=== PATIENT | male | born 1985 | race Caucasian/White ===

== ENCOUNTER 2025-05-23 15:57 | Inpatient (IN) | payer OTHER, SELFPAY ==
[2025-05-21 20:00] VITALS: BP 200/120
[2025-05-21 20:31] VITALS: BMI 34.3
[2025-05-21] MEDS: ZOFRAN 4 MG IV (20:36)
[2025-05-21] MEDS: NSS 1000 IV (20:36)
[2025-05-21] MEDS: PROTONIX IV 40 MG IV (20:36)
[2025-05-21] MEDS: VALIUM INJECTION 10 MG IV ×2 (20:37→23:51)
[2025-05-21 20:38] VITALS: BP 156/102
--- NOTE | 2025-05-21 20:39 | ED.GENMED ---
History of Present Illness
General
Chief Complaint: Abdominal Pain
Source: patient
Exam Limitations: none
Time Seen by Provider: 05/21/25 20:14
Nursing documentation reviewed up to this point in time: agreed with
History of Present Illness
History of Present Illness:
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
vomiting, family members who are in medicine think he may have pancreatitis which he has never had before, points to his right mid back, still has his gallbladder, no bloody stools no bloody emesis
Past History
Past History
ED Past Medical History: Asthma and Cancer (Wilms tumor)
ED Past Surgical History: Urological (Right nephrectomy at age 8)
Social History
Tobacco: Non-smoker
Alcohol: Occasional
Personal: Single
Living: with family
Employment: Employed
Family History
Family History: Other (Noncontributory)
Review of Systems
Review of Systems
All Other Systems: Not applicable
Constitutional: Reports fever
EENT: Reports no symptoms
Respiratory: Denies cough
Cardiac: Denies chest pain
ABD/GI: Reports abdominal pain, nausea and vomiting; Denies diarrhea or black stools
: Reports no symptoms; Denies flank pain
Musculoskeletal: Reports back pain
Phy Exam
Physical Exam
Physical Exam:
Physical Exam
General: 40-year-old male looks uncomfortable smells of alcohol
Neck: No jaundice
Heart: s1/s2 regular rate and rhythm, no murmur. equal radial pulses.
Lungs: no acute respiratory distress. clear bilaterally
Abdomen: Mild right upper quadrant right flank pain
Neuro: alert and oriented. no focal neurological deficits
Skin: no rash
Psychiatric: Slightly tremulous cooperative
Extremities: no edema.
Scores
Withdrawal Assessment of Alcohol
Withdrawal Assessment Completed?: Yes
Nausea and Vomiting: Mild nausea with no vomiting
Tactile Disturbances: Very mild itching, pins and needles, burning or numbness
Tremor: Not visible, but can be felt fingertip to fingertip
Auditory Disturbances: Very mild harshness or ability to fighten
Paroxysmal Sweats: No sweat visible
Visual Disturbances: Mild sensitivity
Anxiety: Moderately anxious, or guarded, so anxiety is inferred
Headache, Fullness in Head: Mild
Agitation: Moderately fidgety and restless
Orientation and clouding of sensorium: Oriented and can do serial additions
Total CIWA Score: 16
Alcohol Withdrawal Medication Recommendation: Equal to MSAS Score 8-11. Lorazepam 1-2mg IV NOW & re-assess q1hr
Course
Orders/Labs/Results
Orders:
Orders
05/21/25 20:00
Electrocardiogram (*1) Urgent
Reason for Study: Tachycardia
05/21/25 20:01
EKG- Treatment ONCE
05/21/25 20:25
Cardiac Monitoring- Treatment ONCE
0.9% Sodium Chloride 1000 ml [Nss] 1,000 ml IV BOLUS
05/21/25 20:26
Ondansetron Injectable [Zofran] 4 mg IV NOW STA
Pantoprazole [Protonix IV] 40 mg IV NOW STA
diazePAM [Valium Injection] 10 mg IV NOW STA
05/21/25 20:32
Add On- LAB Urgent
Tests Added?: magnesium
05/21/25 20:38
Alcohol Urgent
Complete Blood Count/With Diff Urgent
Comprehensive Metabolic Panel Urgent
Lipase Urgent
Magnesium Urgent
Comment: ADD ON
Manual Differential Urgent
05/21/25 21:00
0.9% Sodium Chloride 1000 ml [Nss] 1,000 ml Mvi, Adult [Multivitamin] 10 ml Thiamine Injection 100 mg Magnesium Sulfate 2 grams IV 250 mls/hr
05/21/25 21:10
CT Abd/pelvis W Iv Cont Urgent
Comment:
Reason For Exam: pain vomiting drinker
05/21/25 21:43
Urinalysis Reflex To Culture Urgent
Date Specimen was Collected: 05/21/25
Time Specimen was Collected: 21:41
Urine Microscopic Reflex Cult Urgent
05/21/25 23:06
diazePAM [Valium Injection] 10 mg IV NOW STA
Abnormal Lab Results
05/21/25 05/21/25
20:38 21:43
RBC 4.59 L 10^6/uL
(4.70-6.10)
MCH 33.1 H pg
(27.0-31.0)
Abs Neuts (Manual) 6.9 H 10^3/uL
(1.4-6.5)
Lymphocytes (Manual) 12 L %
(20-51)
Monocytes (Manual) 12 H %
(2-9)
Sodium 132 L mmol/L
(135-145)
Chloride 94 L mmol/L
(98-107)
Carbon Dioxide 21 L mmol/L
(22-30)
BUN 4 L mg/dl
(9-20)
Glucose 112 H mg/dl
(70-99)
Magnesium 1.1 L mg/dl
(1.6-2.3)
AST 180 H U/L
(17-59)
ALT 100 H U/L
(0-50)
Urine Bacteria (Reflex) Few A
(Negative)
Urine Albumin (Reflex) 3+ A
(Neg - Trace)
05/21/25 20:38
05/21/25 20:38
Vital Signs
Initial and Last Documented VS:
Initial Vital Signs
Temp Pulse Resp Pulse Ox
98.2 F 115 19 96
05/21/25 19:57 05/21/25 19:57 05/21/25 19:57 05/21/25 19:57
Last Documented Vital Signs
Temp Pulse Resp BP Pulse Ox
98.2 F 117 17 156/102 98
05/21/25 19:57 05/21/25 20:38 05/21/25 20:38 05/21/25 20:38 05/21/25 20:52
MDM/Problems Addressed
Differential Diagnosis Includes:
Pancreatitis biliary colic gastritis UTI stone musculoskeletal doubt AAA or dissection
MDM/Problems Addressed:
Flank pain back pain alcohol
Chronic conditions affecting care:
Alcohol
Acute Exacerbation and/or Progression of Chronic Illness:
Alcohol
*Pulse Oximetry
SaO2: 96
Oxygen Mode of Delivery: Room air
Patient hypoxic: no
*EKG
Interpreted by ED Provider?: Yes
Interpretation: normal
Comparison EKG: no comparison EKG present
Heart Rate: 78
Rate: normal
Rhythm: sinus
Ischemia: no ischemia
*Mail Agent Interpretation
Rate: normal
Interpretation: normal
Heart Rate: 78
Rhythm: sinus
*Critical Care Note
Total Time (30-74mins, 75-104mins- exclusive of procedures): 20
Update Note
Update Note:
11 PM update labs are noted no radiographic, nor lab evidence of pancreatitis pain is on the right upper back
Will continue hydration
11:30 AM becoming more agitated, patient offered rehab, [facility] etc. he is not interested in, citing some pain in his back hesitant to prescribe any narcotics, as he is alcoholic, considering admission here for impending DTs
ED Attending Note
-
Portions of this chart may have been created with voice recognition software.� Occasional wrong word or��sound alike� substitutions may have occurred due to the inherent limitations of voice recognition software.
Discharge Plan
Departure
Patient Disposition: Home (Routine Discharge)
Date of Disposition: 05/21/25
Time of Disposition: 23:37
Patient with high blood pressure during this ER visit?: No
Condition: Good
Discharge Problem:
Impending DTs, Solitary kidney, acquired, Hypomagnesemia
Prescriptions:
No Action
aspirin 325 MG tablet
325 mg PO DAILY 0RF
Rx Instructions:
TAKE WITH FOOD
diltiazem HCl 180 MG capsule,extended release 24hr
180 mg PO DAILY Qty: 30 3RF
docusate sodium 100 MG capsule
100 mg PO BID 0RF
ergocalciferol (vitamin D2) 8,000 UNITS/ML drops
50,000 units PO WEEKLY Qty: 4 3RF
oxycodone 5 MG tablet
5 mg PO Q6HPRN PRN (Reason: moderate-severe pain) Qty: 30 0RF
Rx Instructions:
1 tab moderate pain or 2 if pain severe
Dx total joint replacement
ongoing therapy
prednisone 10 MG tablet
40 mg PO TAPER Qty: 10 0RF
Rx Instructions:
4 tab(40mg) day 1, 3 tabs(30mg) day 2, 2 tabs(20mg) day3,
1 tab (10mg) day 4, then stop
famotidine 20 MG tablet
20 mg PO HS Qty: 30 0RF
albuterol sulfate 2.5 mg /3 mL (0.083 %) solution for nebulization
2.5 mg inhalation Q6H PRN (Reason: shortness of breath or wheezing) Qty: 90 0RF
prednisone 20 mg tablet
40 mg PO DAILY Qty: 8 0RF
Referrals:
Ludin Lomeli DO [Family Provider, Family Practice]
Interventions
Interventions:
*General Assessment Last Done: 05/21/25 19:59
*Neglect/Abuse Screening Last Done: 05/21/25 20:00
*ED COVID-19 Vaccine History Last Done: 05/21/25 20:00
*ED Influenza Vaccine History Last Done: 05/21/25 20:00
[facility] Fall Risk Assessment Tool Last Done: 05/21/25 20:31
*Risk Screen - Suicide (C-SSRS) Last Done: 05/21/25 20:00
GU-Achbfp-Fybgricxqb Assessment Last Done: 05/21/25 20:31
Discharge Date and Time
Print Language: SAMOAN
[2025-05-21 20:55] LABS: Hematocrit 42.6 % (39.0-52.0); Hemoglobin 15.2 g/dL (13.0-18.0); Mean Corp Hgb Conc. 35.7 g/dL (33.0-37.0); Mean Corpuscular Volume 92.8 fL (80.0-94.0); Red Cell Dist. Width 13.2 % (11.5-14.5)
[2025-05-21 21:00] VITALS: BP 134/82
[2025-05-21 21:07] LABS: Platelet Count 168 10^3/uL (130-400)
[2025-05-21 21:08] LABS: ALT (SGPT) 100 U/L (0-50); AST (SGOT) 180 U/L (17-59); Albumin 4.6 g/dl (3.5-5.0); Alkaline Phosphatase 118 U/L (38-126); Blood Urea Nitrogen 4 mg/dl (9-20); Calcium 8.4 mg/dl (8.4-10.2); Carbon Dioxide 21 mmol/L (22-30); Chloride 94 mmol/L (98-107); Estimated Creatinine Clearance > 125 ml/min; Glucose 112 mg/dl (70-99); Lipase 109 U/L (23-300); Magnesium 1.1 mg/dl (1.6-2.3); Potassium 3.7 mmol/L (3.5-5.1); Sodium 132 mmol/L (135-145); Total Protein 7.7 g/dl (6.3-8.2); eGFR > 60.00
[2025-05-21 21:09] LABS: Absolute Neutrophils -Man Diff 6.9 10^3/uL (1.4-6.5)
[2025-05-21 21:10] LABS: Normal RBC Morphology Yes; Platelets Checked Yes; Total Cells Counted 100
[2025-05-21] MEDS: MULTIVITAMIN 1015 GRAMS IV (21:40)
[2025-05-21] MEDS: MULTIVITAMIN 1015 MG IV (21:40)
[2025-05-21] MEDS: MULTIVITAMIN 1015 ML IV (21:40)
[2025-05-21 22:03] LABS: Urine Character Clear (Clear)
[2025-05-21 22:13] LABS: Urine Red Blood Cell 0-2 /HPF (0-2); Urine Squamous Cell 0-2 /LPF (Few); Urine White Cell 0-2 /HPF (0-5)
[2025-05-21 23:54] VITALS: BP 128/87
[2025-05-22] VITALS: BP 142/107
--- NOTE | 2025-05-22 00:18 | HPS.HSE ---
Family Physician
-
Family Physician: Ludin Lomeli
Chief Complaint
-
Abdominal pain
History of Present Illness
This is a 40-year-old with past medical history significant for alcohol dependence who presents to the emergency department with 1 day history of abdominal pain nausea vomiting which she attributes to pancreatitis.
Patient feels that is having symptoms secondary to acute pancreatitis. He reports vomiting and nausea throughout the day. Reports chronic history of heavy drinking. He states he drinks 1 L of liquor (vodka) daily. His last drink was at around 6
PM yesterday. Patient reports the pain is in the right upper quadrant and radiating towards the back. He denies any bloody or bilious emesis.
Patient denies known history of pancreatitis or gallstone disease. He does have a history of Wilms tumor at age 8 status post right nephrectomy. He states that he has undergone withdrawal episodes in the past that required hospitalization and ICU
stay. He also reports that he has had delirium tremens. He denies history of withdrawal seizures. He currently denies any interest in rehab. While he was being evaluated in the ED he started having withdrawal symptoms which he describes as
tremulousness and tachycardia. Is not currently having any hallucinations.
In the emergency department he was afebrile, blood pressure was 150/100 with a pulse rate of 117 and oxygen saturation of 98%. EKG shows sinus tachycardia at rate of [address] or T wave changes.
CBC was unremarkable. Electrolytes BUN/creatinine were in the normal range. He had a low magnesium of 1.1, AST 180 ALT 100. Lipase was normal. UA was unremarkable. Alcohol level was 280.
CT of the abdomen pelvis shows severe hepatic steatosis but no biliary findings. Gallbladder is normal.
Medical History
Past Medical History
Past Medical History: Reports Psychiatric (ADD, depression, anxiety,) and Other (Lymphedema)
Past Surgical History: Reports Orthopedic (Left hip cannulation/screw fixation) and Other (A right nephrectomy, and lymph node dissection,)
Social History
Tobacco: Non-smoker
Alcohol: Daily
Drug: None
Family History
Family History: Not pertinent
Allergies / Home Medications
Allergies reflects when Allergies were last updated in [employer]
Home Medications with original date entered in [employer]
Allergy/Medication List:
Allergies
Allergy/AdvReac Type Severity Reaction Status Date / Time
diphenhydramine HCl (From Allergy 'made me Verified 06/05/23 09:00
Benadryl) tish'
Home Medications
Propranolol 20 mg tablets, 20 mg p.o. 3 times daily as needed
Doxepin 50 mg, 50 mg p.o. at bedtime
Review of Systems
-
Constitutional: Reports No Symptoms
EENT: Reports No Symptoms
Respiratory: Reports No Symptoms
Cardiac: Reports No Symptoms
Abdomen/GI: Reports Abdominal Pain, Nausea and Vomiting
: Reports No Symptoms
Musculoskeletal: Reports No Symptoms
Skin: Reports No Symptoms
Neurological: Reports No Symptoms
Endocrine: Reports No Symptoms
Hematologic/Lymphatic: Reports No Symptoms
Psych: Reports No Symptoms
Physical Exam
Vital Signs
Vital Signs
Temp Pulse Resp BP Pulse Ox
98.2 F 117 17 156/102 98
05/21/25 19:57 05/21/25 20:38 05/21/25 20:38 05/21/25 20:38 05/21/25 20:52
Physical Exam
General: Well Developed, Well Nourished and No Apparent Distress
HEENT: NormoCephalic, Moist mucous membranes and Atraumatic
Respiratory: Clear
Cardiac: S1/S2 and Regular Rhythm; No Murmur or Rub
GI: Soft, Non Tender, Non Distended and Normal Bowel Sounds; No Organomegaly
Rectal: Deferred by Provider
Musculoskeletal: No Clubbing, No Cyanosis and No Edema
Skin: No Rash
Neuro: Nonfocal/grossly intact
Laboratory Results
-
05/21/25 20:38
05/21/25 20:38
Laboratory Results
Total Bilirubin 1.3 mg/dl (0.2-1.3) 05/21/25 20:38
AST 180 U/L (17-59) H 05/21/25 20:38
ALT 100 U/L (0-50) H 05/21/25 20:38
Alkaline Phosphatase 118 U/L (38-126) 05/21/25 20:38
Lipase 109 U/L (23-300) 05/21/25 20:38
Data Reviewed
-
CT Scan: Report Reviewed by me
Medical Tests (Nuc Med, Echo, EKG etc): Image Personally Visualized and interpreted
Lab Data: Labs Reviewed by me
Old Records: Reviewed
Impression/Plan
-
IMPRESSION:
40-year-old male with past medical history significant for alcohol abuse who presents to the emergency department with abdominal pain initially thought to be pancreatitis. However his labs are negative for pancreatitis and a CT scan shows no
evidence of pancreatitis. Pain is likely gastritis. I am in the emergency department and seems to have symptoms of withdrawal with tachycardia and tremulousness and anxiety. He feels he is going to withdrawal. He has a history of prior alcohol
withdrawal requiring hospitalizations and ICU stay in the past. His last hospitalization for withdrawal was in April.
PLAN:
Alcohol withdrawal -history of severe withdrawal, he has a elevated PAWS = 6. Currently has mild tremulousness and tachycardia.
� Admit to telemetry observation
� Will start high risk withdrawal protocol with phenobarbital taper
� Msas and as needed atenolol
� IV folic acid and thiamine and
-Continue IV fluids
� Case management for outpatient rehab
Abdominal pain -suspect gastritis. Cannot rule out acute alcohol hepatitis.
-Pain control, antiemetics
� N.p.o. for now except clear liquids
� Trend LFTs
� Check INR
� Encourage alcohol withdrawal
DVT prophylaxis�Lovenox subcu
CODE STATUS�full code
[2025-05-22] MEDS: MORPHINE SULFATE 4 MG IV (01:13)
[2025-05-22] MEDS: ZOFRAN 4 MG IV (01:44)
[2025-05-22] MEDS: PHENOBARBITAL 104 MG IV (02:30)
--- NOTE | 2025-05-22 03:08 | PTCARENOTE ---
Pt received from ED to rm [id number]. Pt oriented to room and call doherty.
[2025-05-22 03:15] VITALS: BP 159/96; BMI 33.7
[2025-05-22] MEDS: NSS 1000 IV ×2 (03:42→13:27)
[2025-05-22] MEDS: ATIVAN 1 MG PO ×3 (03:47→22:07)
[2025-05-22] MEDS: DILAUDID 0.5 MG IV ×3 (04:50→13:31)
--- NOTE | 2025-05-22 07:32 | W.PN.HOSP.TC ---
Addendum entered and electronically signed by Delfino Yousif MD 05/22/25 20:57:
Attending Addendum-I saw and evaluated the patient. I reviewed the resident�s note and agree with findings and plan as documented in the resident�s note. Sub: Complains of feeling unwell. Tremulous, nauseous, right flank pain/right sided abd pain.
Full 12 point ROS reviewed and negative except as documented Exam: Vitals reviewed in chart GEN-mild distress heart tachycardic no murmur lungs decreased BS @ bases Abd distended TTP RUQ and Right flank, pos BS no rebound no guarding no fluid wave
LE trace b/l LE edema Neuo tremulous, no asterixis AAOx3
Plan:
#Alcohol withdrawal -history of DT's
� continue high risk withdrawal protocol with phenobarbital taper
� MSAS 4-6l
� IV folic acid and thiamine
- Continue IV fluids
� Case management for outpatient rehab
# Abdominal pain/ETOH hepatitis
-pain likely from etoh hepatitis and severe hepatic steatosis
-Pain control, antiemetics
-abd u/s 05/22-
1. VERY SEVERE DIFFUSE HEPATIC STEATOSIS.
2. Distended gallbladder.
3. No sonographic evidence for biliary obstruction.
4. Previous right nephrectomy.
5. No sonographic evidence for ascites.
� Trend LFTs
- cont iVF/pain control
� Encourage alcohol withdrawal
# Hyponatremia-cont IVF repeat BMP in am
# Hypokalemia-replete and recheck BMP in am
# Thrombocytopenia-from ETOH abuse- cont to trend CBC
# H/O Wilms tumor with right nephrectomy
# HTN- cont propranolol
# Insomnia-cont doxepin
DVT prophylaxis�SCDs
CODE STATUS�full code
Dispo-refusing IP rehab->eventual IOP
Time spent coordinating care, review of plan of care with resident, personally reviewed records in EMR, med rec, consults, notes, labs, radiology, d/w nursing and CM� 51 mins
Original Note:
Today's Communication/Plan
-
CXR
Abd US
MSAS protocl
phenobarb taper
pain management
Assessment / Plan
Assessment / Plan
40yoM PMH R Wilms tumor s/p nephrectomy lung RT with RT fibrosis 1992 and alcohol dependence presenting with alcohol withdrawal and alcohol hepatitis.
AFVSS. Pt is becoming tachycardic with hypertension with agitation scoring MSAS highest 6. Pt complains most of RUQ pain, negative [place] sign. Distended abdomen without fluid wave. Pt also has sore throat and cough, known sick contacts at home
with same symptoms. AST 131 ALT 85 Bilirubin 1.5. Lipase 109. CT abd no signs of pancreatitis, steatosis. Abd US positive for steatosis no findings of ascites. R sided pain localizes to flank w RUQ tenderness most likely referred hepatic pain given
absence of R kidney, eliminating renal etiology for source of pain.
Pt reports he is done drinking. He declined rehab since he has been many times without benefit but reports this time he plans on stopping and changing his lifestyle. Discussed with his sister who reports this has happened about 20 times.
#acute alcohol withdrawal
- MSAS protocol
- phenobarbital taper
- PRN ativan
- upgrade as needed if scoring high MSAS
#elevated LFTS possible alcohol hepatitis
- Abd US and CT demonstrate steatosis
- elevated LFTs
- RUQ pain. PRN oxycodone 5mg. Lidocaine patch
- Hold tylenol
#URI
#Hx lung RT
- cough and sore throat. tx conservatively
- mucinex
- PRN duonebs
#hx Wilms tumor
- Kidney. Hold NSAIDs
PCP Dr Sanchez
Confirmed full code
Anticipated Discharge: 24 - 48 hours
Subjective/Interval History
-
Date of Service: May 22, 2025
Pt reports drinking 1 bottle vodka/day for the last 2 weeks. He explained that he was in a residential relationship that ended 2 years ago that started a cycle of binge drinking. He reports his last 'delgado' was in April where he went to a detox
facility. He reports repeated detox facility and rehab admissions, one of which he was admitted to a hospital in the ICU for DT.
Today, Pt reports feeling unwell with body aches from alcohol withdrawal. He reports a new onset cough and sore throat, describing his mom and sister have had similar cold-like symptoms. Additionally, he reports R sided pain that is exacerbated with
coughing and moving. Denies nausea or vomiting since taking zofran. Last emesis yesterday. Last alcohol drink yesterday. Denies diarrhea, constipation, last BM yesterday normal. Reports feeling bloated which he describes happens when he drinks.
Objective Data
-
Labs:
Laboratory Results
05/21/25 05/22/25
20:38 06:57
WBC 9.6
Hgb 15.2
Hct 42.6
Plt Count 168
PT Pending
INR Pending
APTT Pending
Sodium 132 L
Potassium 3.7
Chloride 94 L
Carbon Dioxide 21 L
BUN 4 L
Creatinine 0.7
Glucose 112 H
Calcium 8.4
Total Bilirubin 1.3
AST 180 H
ALT 100 H
Alkaline Phosphatase 118
Vital Signs:
Vital Signs
Temp Pulse Resp BP Pulse Ox
97.6 F 103 18 159/96 93
05/22/25 03:15 05/22/25 03:15 05/22/25 03:15 05/22/25 03:15 05/22/25 03:15
I&O
05/21/25 05/22/25 05/23/25
06:59 06:59 06:59
Intake Total 1310 / 1310
Balance 1310 / 1310
Review of Systems
-
History Source: Patient
Constitutional: Reports No Appetite and Weakness
EENT: Reports Sore Throat; Denies Runny Nose or Blurry Vision
Respiratory: Reports Cough
Cardiac: Reports No Symptoms
Abdomen/GI: Reports Abdominal Pain; Denies Nausea, Vomiting, Diarrhea or Constipated
Genitourinary: Denies No Symptoms
Musculoskeletal: Reports Myalgias
Skin: Reports No Symptoms
Neuro: Reports Tremors
Endocrine: Reports No Symptoms
Hematologic / Lymphatic: Reports No Symptoms
Physical Exam
-
General: Well Developed, Well Nourished and No Apparent Distress
HEENT: Normocephalic, Atraumatic and Moist Mucous Membranes
Respiratory: Clear to Auscultation and Non Labored Respirations
Cardiac: Regular Rhythm and S1/S2
GI: Tender (deep palpation RUQ) and Distended
Musculoskeletal: No Edema (L lymphedema at baseline)
Skin: Warm, Dry and Other (flushed)
Neuro: AO x 3, No Motor Deficits and Nonfocal/Grossly Intact; Negative Tremors
Psych: Calm
[2025-05-22] MEDS: FOLVITE 1 MG PO (07:50)
[2025-05-22] MEDS: NSS (PRESERVATIVE FREE) 8 ML IV (07:51)
[2025-05-22] MEDS: PROTONIX IV 40 MG IV (07:51)
[2025-05-22] MEDS: NSS (PRESERVATIVE FREE) 10 ML IV (07:51)
[2025-05-22] MEDS: PHENOBARBITAL 97.5 MG IV ×3 (07:52→22:01)
[2025-05-22] MEDS: PEPCID 20 MG IV (07:52)
[2025-05-22] MEDS: THIAMINE INJECTION 200 MG IV ×3 (07:53→23:22)
[2025-05-22 08:27] LABS: APTT 30.8 Sec (23.4-35.0); INR 1.06; PT 13.9 Sec (11.4-14.6)
[2025-05-22 08:43] VITALS: BP 165/124
[2025-05-22 08:55] LABS: Magnesium 1.7 mg/dl (1.6-2.3)
[2025-05-22 10:18] LABS: Urine Character Clear (Clear)
[2025-05-22] MEDS: MUCINEX 600 MG PO ×2 (10:53→20:05)
[2025-05-22 11:17] LABS: Urine Red Blood Cell 0-2 /HPF (0-2); Urine Squamous Cell 0-2 /LPF (Few)
[2025-05-22 11:54] LABS: Hematocrit 40.2 % (39.0-52.0); Hemoglobin 13.5 g/dL (13.0-18.0); Mean Corp Hgb Conc. 33.6 g/dL (33.0-37.0); Mean Corpuscular Volume 95.3 fL (80.0-94.0); Nucleated Red Blood Cells % 0 % (-); Platelet Count 121 10^3/uL (130-400); Red Cell Dist. Width 13.5 % (11.5-14.5)
[2025-05-22 13:09] LABS: ALT (SGPT) 85 U/L (0-50); AST (SGOT) 131 U/L (17-59); Albumin 4.2 g/dl (3.5-5.0); Alkaline Phosphatase 102 U/L (38-126); Blood Urea Nitrogen 4 mg/dl (9-20); Calcium 8.0 mg/dl (8.4-10.2); Carbon Dioxide 22 mmol/L (22-30); Chloride 99 mmol/L (98-107); Estimated Creatinine Clearance > 125 ml/min; Glucose 93 mg/dl (70-99); Potassium 3.4 mmol/L (3.5-5.1); Sodium 131 mmol/L (135-145); Total Protein 7.1 g/dl (6.3-8.2); eGFR > 60.00
[2025-05-22] MEDS: LIDOCAINE 4% PATCH 1 PATCH TOPICAL (13:30)
--- NOTE | 2025-05-22 15:31 | CM ---
CM reviewed chart, patient seen bedside, initial assessment completed.
Pt reports he has his own home in [place], does also stay with his parents in [place].
Patient is independent with ADLs/IADLs.
PCP: Ludin Lomeli, Pharmacy [facility] if d.c to parents home, [facility] if d/c to own home.
CM offered [facility] to patient, undecided at this time. Will continue to offer.
CM will continue to follow for all d/c planning needs.
Plan; continue to offer [facility]
[2025-05-22 15:37] LABS: COVID-19 Antigen Negative (Negative)
[2025-05-22 15:55] VITALS: BP 177/108
[2025-05-22] MEDS: ATIVAN 1 MG IV (18:37)
[2025-05-22 19:44] VITALS: BP 169/116
[2025-05-22] MEDS: REMOVE LIDOCAINE PATCH 1 PATCH REMOVE (20:07)
[2025-05-22] MEDS: SINEQUAN 50 MG PO (22:01)
[2025-05-22 23:44] VITALS: BP 174/96
[2025-05-23] VITALS (11 sets, daily range): BP systolic 116–159; BP diastolic 64–144
[2025-05-23] MEDS: ATIVAN 1 MG PO ×3 (00:29→17:20)
[2025-05-23] MEDS: NSS IV ×2 (01:45→01:51)
[2025-05-23] MEDS: NSS 1000 IV ×3 (01:51→17:22)
[2025-05-23] MEDS: ROXICODONE 5 MG PO (03:56)
[2025-05-23] MEDS: SENOKOT-S 1 TABLET PO (03:56)
--- NOTE | 2025-05-23 06:00 | PTCARENOTE ---
Contacted House Provider for pt's BP 174/96 at 23:44. House Provider aware. No orders received for BP lowering medication. When asked if IVF at 125mL/hr could be reduced, orders received for fluids to infuse at 75mL/hr. Repeat BP at 03:15 129/64.
Will continue to monitor.
[2025-05-23] MEDS: DILAUDID 0.5 MG IV ×2 (08:49→20:50)
[2025-05-23] MEDS: PHENOBARBITAL 97.5 MG IV ×3 (08:59→22:41)
[2025-05-23] MEDS: MUCINEX 600 MG PO (08:59)
[2025-05-23] MEDS: NSS (PRESERVATIVE FREE) 10 ML IV (09:00)
[2025-05-23] MEDS: FOLVITE 1 MG PO (09:00)
[2025-05-23] MEDS: LIDOCAINE 4% PATCH 1 PATCH TOPICAL (09:00)
[2025-05-23] MEDS: PROTONIX IV 40 MG IV (09:01)
[2025-05-23] MEDS: THIAMINE INJECTION 200 MG IV ×2 (09:01→15:59)
[2025-05-23 10:57] LABS: Hematocrit 39.0 % (39.0-52.0); Hemoglobin 13.7 g/dL (13.0-18.0); Mean Corp Hgb Conc. 35.1 g/dL (33.0-37.0); Mean Corpuscular Volume 94.4 fL (80.0-94.0); Nucleated Red Blood Cells % 0 % (-); Platelet Count 103 10^3/uL (130-400); Red Cell Dist. Width 12.8 % (11.5-14.5)
[2025-05-23 11:13] LABS: ALT (SGPT) 71 U/L (0-50); AST (SGOT) 117 U/L (17-59); Albumin 3.9 g/dl (3.5-5.0); Alkaline Phosphatase 112 U/L (38-126); Blood Urea Nitrogen 6 mg/dl (9-20); Calcium 7.9 mg/dl (8.4-10.2); Carbon Dioxide 23 mmol/L (22-30); Chloride 96 mmol/L (98-107); Estimated Creatinine Clearance > 125 ml/min; Glucose 160 mg/dl (70-99); Magnesium 1.5 mg/dl (1.6-2.3); Potassium 3.4 mmol/L (3.5-5.1); Sodium 127 mmol/L (135-145); Total Protein 6.8 g/dl (6.3-8.2); eGFR > 60.00
[2025-05-23] MEDS: ATIVAN 1 MG IV ×2 (12:39→14:48)
[2025-05-23] MEDS: NSS (PRESERVATIVE FREE) 0.5 ML IV ×2 (12:40→14:49)
--- NOTE | 2025-05-23 15:23 | W.PN.HOSP.TC ---
Addendum entered and electronically signed by Oscar Araiza MD 05/23/25 15:58:
MSAS continue to increase. Now with hallucinations. DTs. Transfer to ICU and start Precedex. Group Work Program Aide notified
Original Note:
Today's Communication/Plan
-
Monitor vitals
See plan
Monitor MSAS closely
Continue with phenobarbital
If symptoms get worse then will need Precedex
Start fluids
Replete magnesium, phosphorus, potassium
Monitor sodium
Trial of clonidine
Assessment / Plan
Assessment / Plan
40yoM PMH R Wilms tumor s/p nephrectomy lung RT with RT fibrosis 1992 and alcohol dependence presenting with alcohol withdrawal and alcohol hepatitis.
AFVSS. Pt is becoming tachycardic with hypertension with agitation scoring MSAS highest 6. Pt complains most of RUQ pain, negative [place] sign. Distended abdomen without fluid wave. Pt also has sore throat and cough, known sick contacts at home
with same symptoms. AST 131 ALT 85 Bilirubin 1.5. Lipase 109. CT abd no signs of pancreatitis, steatosis. Abd US positive for steatosis no findings of ascites. R sided pain localizes to flank w RUQ tenderness most likely referred hepatic pain given
absence of R kidney, eliminating renal etiology for source of pain.
Pt reports he is done drinking. He declined rehab since he has been many times without benefit but reports this time he plans on stopping and changing his lifestyle. Discussed with his sister who reports this has happened about 20 times.
#acute alcohol withdrawal
- MSAS protocol
- cw phenobarbital taper
- PRN ativan
cw IVF
Currently no signs of delirium. However if MSAS continue to get worse patient is agitated then will need Precedex
#elevated LFTS likely secondary to possible alcohol hepatitis
- Abd US and CT demonstrate steatosis
- elevated LFTs, trend
Pain control
- Hold tylenol
Right hand pain
X-ray without any acute abnormality
Monitor
Hypokalemia
Replete
Hypophosphatemia
Replete
Hyponatremia
Start fluids
Monitor
Hypomagnesemia
Replete
Thrombocytopenia likely secondary to alcohol use
Monitor
Currently hypertensive
Not on any home meds
Monitor with withrawal
#URI
#Hx lung RT
- cough and sore throat. tx conservatively
- mucinex
- PRN duonebs
#hx Wilms tumor with right nephrectomy
DVT prophylaxis
start lovenox
Full code
General: Well Developed, Well Nourished and No Apparent Distress
HEENT: NormoCephalic, Moist mucous membranes and Atraumatic
Respiratory: Clear
Cardiac: S1/S2 and Regular Rhythm; +tachycardia
GI: Soft, Non Tender, Non Distended and Normal Bowel Sounds
Musculoskeletal: No Edema
Neuro: Nonfocal/grossly intact,+ tremor
I spent a total of 52 minutes with the patient or on the floor. More than 50% of this time involved counseling and coordination of care.
Anticipated Discharge: > 48 hours
Subjective/Interval History
-
Date of Service: May 23, 2025
denies nausea
Objective Data
-
Labs:
Laboratory Results
05/23/25
10:19
WBC 8.2
Hgb 13.7
Hct 39.0
Plt Count 103 L
Sodium 127 L
Potassium 3.4 L
Chloride 96 L
Carbon Dioxide 23
BUN 6 L
Creatinine 0.6 L
Glucose 160 H
Calcium 7.9 L
Total Bilirubin 2.3 H D
AST 117 H
ALT 71 H
Alkaline Phosphatase 112
Vital Signs:
Vital Signs
Temp Pulse Resp BP Pulse Ox
98.1 F 120 22 151/104 98
05/23/25 11:35 05/23/25 11:35 05/23/25 11:35 05/23/25 11:35 05/23/25 11:35
I&O
05/22/25 05/23/25 05/24/25
06:59 06:59 06:59
Intake Total 1310 / 1310 3140 / 3140
Balance 1310 / 1310 3140 / 3140
[2025-05-23] MEDS: CATAPRES 0.1 MG PO (15:54)
--- NOTE | 2025-05-23 16:10 | CON.INTV ---
Consultation
Consultation Request
Date/Time Consultation Requested: 05/23/2025
Date/Time Consultation Performed: 05/23/2025
Medical History
-
Chief Complaint: Alcohol withdrawl
History of Present Illness:
Patient is a 40-year-old gentleman with known history of alcohol use disorder presented to the hospital on 05/22 with 1 day history of abdominal pain, nausea and vomiting. No prior known history of gallbladder disease or pancreatitis. Reported
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 Patient has had prior episodes of alcohol withdrawal. In the emergency room he was noted to be tachycardiac and there was concern of alcohol withdrawal and was admitted to the
hospitalist service. MSAS score has since been monitored and patient also given phenobarbital. Patient however has continued to get increasingly agitated and on 05/23, he was transferred to ICU for initiation of Precedex infusion due to continued
increasing agitation. Rn Physician Office consultation was requested for further input.
Past Medical History
Past Medical History: Reports Psychiatric (ADD, depression, anxiety,) and Other (Lymphedema)
Past Surgical History: Reports Orthopedic (Left hip cannulation/screw fixation) and Other (A right nephrectomy, and lymph node dissection,)
Social History
Tobacco: Non-smoker
Alcohol: Daily
Drug: None
Family History
Family History: Not pertinent
Allergies / Home Medications
Allergies / Home Medications
Allergies
Allergy/AdvReac Type Severity Reaction Status Date / Time
diphenhydramine HCl (From Allergy 'made me Verified 06/05/23 09:00
Benadryl) tish'
Home Medications
�Medication �Instructions �Recorded �Confirmed �Last Taken �Type
aspirin 325 mg tablet 325 mg PO DAILY Blood clot 11/08/21 05/22/25 Unknown Rx
prevention/tx
albuterol sulfate 2.5 mg/3 mL 2.5 mg (3 mL) inhalation Q6H PRN 06/05/23 05/22/25 Unknown Rx
(0.083 %) solution for nebulization shortness of breath or wheezing
#90 mL
doxepin 50 mg capsule 50 mg PO HS 05/22/25 05/22/25 05/19/25 History
naltrexone 50 mg tablet 50 mg PO DAILY 05/22/25 05/22/25 Unknown History
propranolol 20 mg tablet 20 mg PO BID PRN anxiety 05/22/25 05/22/25 05/20/25 History
Review of Systems
-
Hematologic/Lymphatic: Other
Vitals / Labs / Diagnostic Testing
Vital Signs
Temp Pulse Resp BP Pulse Ox
98.4 F 116 20 158/105 98
05/23/25 15:15 05/23/25 15:15 05/23/25 15:15 05/23/25 15:15 05/23/25 15:15
Lab Data
05/23/25 10:19
05/23/25 10:19
Microbiology
05/22/25 15:01 Nasal Swab Influenza Types A & B (ISABEL) - Final
Negative for Influenza A & B, NAAT
Negative results must be combined with clinical observations
and patient history.
Nucleic Acid Amplification test (NAAT)performed on the
[employer] platform.
Diagnostic Testing:
Physical Exam
-
HEENT: Normocephalic
Cardiovascular: S1/S2 and Peripheral Edema (Left lower extremity chronic lymphedema )
Respiratory: Clear
GI: Distended and Other (mild diffuse tenderness, no rebound. )
Neurology: Awake and Alert
Skin: Warm
General: Comfortable
Assessment
-
#1. Acute toxic metabolic encephalopathy with severe alcohol withdrawal
- Continue MSAS, Phenobarbital per protocol
- Initiate Precedex as needed.
- Continue thiamine replacement
- Monitor closely in ICU, currently protecting airway well
#2. Abnormal LFTs with abdominal pain
- Alcoholic hepatitis in differential diagnosis as etiology of patient's abdominal discomfort
- Ultrasound without evidence of cholecystitis. No significant ascites noted. Lipase normal, CT abdomen pelvis not suggestive of any pancreatitis.
- Continue empiric IV PPI for ?Gastritis/esophagitis
- History of severe hepatic steatosis as well as alcoholism, AST and ALT serially improving, however bilirubin rising
- Continue to monitor liver function test including bilirubin
- Discriminant function: 13.8, no indication for steroid therapy
#3. Hyponatremia
- Suspect in the setting of alcoholism, check urine sodium and urine osmolality
- NS infusing
- Labs in AM
#4. Low K, Mg and P
- Replacing electrolytes
- Monitor labs
#5. Polysubstance abuse
- UDS positive for opiates, barbiturates, tricyclic's, benzodiazepines
- Precedex infusion, monitor for s/s of withdrawl
- QTc interval normal
- F/u EKG in AM
#6. Thrombocytopenia
- Suspect related to alcoholism and severe fatty liver
- Continue to monitor for now
Other medical diagnoses:
- S/p right nephrectomy with history of Wilms tumor
- Severe diffuse hepatic steatosis
- Left leg lymphedema. known h/o surgery x2 and lymph node dissection. At baseline
- Right hand pain. X ray unremarkable. Check uric acid level in AM.
DVT prophylaxis. Subcu Lovenox
Critical Care time 65 mins -- The patient is admitted for acute critical illness for the treatment of vital organ failure and/or prevention of further life-threatening conditions. Total care includes time spent in review of history, physical exam,
medications, hemodynamic/ventilator parameters, laboratory data, imaging and discussion with house staff, pharmacy, respiratory therapy, engineering faculty, and nursing.
Data:
RUQ US 05/2025: 1. VERY SEVERE DIFFUSE HEPATIC STEATOSIS.
2. Distended gallbladder.
3. No sonographic evidence for biliary obstruction.
4. Previous right nephrectomy.
5. No sonographic evidence for ascites.
CT A/P 05/2025: Severe hepatic steatosis.
Prior right nephrectomy.
CXR 05/2025: 1. No radiographic evidence for pneumonia.
2. Moderate elevation of the right hemidiaphragm.
EKG 05/2025: Sinus tachy, QTc 469
ECHO 01/2022: Normal left ventricular size, wall thickness and systolic function. No regional
wall motion abnormalities are seen. LV ejection fraction is 60% by Pacheco's
biplane method of discs. Normal diastolic function.
Mildly thickened mitral valve leaflets. Mitral valve opens normally. Mitral
annular calcification. Mild mitral regurgitation.
Since echocardiogram April 2013, there is no significant change.
--- NOTE | 2025-05-23 17:31 | PTCARENOTE ---
Verbal report received from GUANAKO Reyes.
Patient arrived into room 3370 from room 424. Oriented to room and use of call doherty. Patient able to transfer from to bed. Patient able to state where he was and year. Unable to state why he was in the hospital. Sales Development Consultant, Dr. Kim, made
aware of pt arrival. MSAS 6; 1mg PO Ativan given per protocol. Sinus tach HR 109 on telemetry. SBP 130-140s. Reports pain to right hand/wrist; tender to touch. VAT paged for new IV placement. Bed alarm set for safety. Tray table and call doherty within
reach.
[2025-05-23] MEDS: REMOVE LIDOCAINE PATCH 1 PATCH REMOVE (17:37)
[2025-05-23] MEDS: POTASSIUM PHOSPHATE 259.0909 MEQ IV (18:09)
[2025-05-23] MEDS: LOVENOX 40 MG SC (18:21)
[2025-05-23] MEDS: MAGNESIUM SULFATE 50 IV (18:25)
[2025-05-23 18:32] LABS: Glucose - Point of Care 109 mg/dl (70-99)
--- NOTE | 2025-05-23 18:41 | TRANSFER ---
Pt here for ETOH withdrawal. MSAS score increased to 11 with the pt becoming more disoriented. Pt was consistantly tachycardic and blood pressures were high. made discision to transfer him to higher level of care. Pt tansferred to ICU at 16:45.
Report given to Karan
[2025-05-23] MEDS: ATIVAN 2 MG IV ×2 (19:36→22:42)
[2025-05-23] MEDS: MUCINEX PO (19:36)
[2025-05-23] MEDS: SINEQUAN PO (22:43)
--- NOTE | 2025-05-23 23:33 | PTCARENOTE ---
Increasing MSAS scores --> Protocol followed.
Reporting increasing R Wrist pain, unrelieved w. PRN analgesia ICU ANGELICA notified.
No further changes in assessment.
[2025-05-24] VITALS (17 sets, daily range): BP systolic 135–176; BP diastolic 87–120; BMI 33.8
[2025-05-24] MEDS: THIAMINE INJECTION 200 MG IV ×3 (01:13→16:13)
[2025-05-24] MEDS: DILAUDID 0.5 MG IV (01:40)
[2025-05-24] MEDS: ATIVAN 1 MG IV (01:40)
[2025-05-24] MEDS: NSS 1000 IV ×2 (03:46→20:36)
[2025-05-24 04:52] LABS: Hematocrit 37.5 % (39.0-52.0); Hemoglobin 13.2 g/dL (13.0-18.0); Mean Corp Hgb Conc. 35.2 g/dL (33.0-37.0); Mean Corpuscular Volume 93.1 fL (80.0-94.0); Nucleated Red Blood Cells % 0 % (-); Platelet Count 98 10^3/uL (130-400); Red Cell Dist. Width 13.0 % (11.5-14.5)
[2025-05-24 05:03] LABS: ALT (SGPT) 59 U/L (0-50); AST (SGOT) 82 U/L (17-59); Albumin 3.4 g/dl (3.5-5.0); Alkaline Phosphatase 92 U/L (38-126); Blood Urea Nitrogen 7 mg/dl (9-20); Calcium 7.7 mg/dl (8.4-10.2); Carbon Dioxide 20 mmol/L (22-30); Chloride 102 mmol/L (98-107); Estimated Creatinine Clearance > 125 ml/min; Glucose 95 mg/dl (70-99); Magnesium 1.8 mg/dl (1.6-2.3); Potassium 3.5 mmol/L (3.5-5.1); Sodium 130 mmol/L (135-145); Total Protein 6.5 g/dl (6.3-8.2); Uric Acid 7.6 mg/dl (3.5-8.5); eGFR > 60.00
--- NOTE | 2025-05-24 06:05 | PTCARENOTE ---
No changes in assessment.
[2025-05-24] MEDS: LIDOCAINE 4% PATCH 1 PATCH TOPICAL (07:18)
[2025-05-24] MEDS: FOLVITE 1 MG PO (07:19)
[2025-05-24] MEDS: MUCINEX 600 MG PO ×2 (07:19→20:35)
[2025-05-24] MEDS: LUMINAL 64.8 MG PO ×3 (07:19→22:39)
[2025-05-24] MEDS: NSS (PRESERVATIVE FREE) 10 ML IV (07:20)
[2025-05-24] MEDS: PROTONIX IV 40 MG IV (07:20)
--- NOTE | 2025-05-24 08:08 | PTCARENOTE ---
Updated assessment, vital sign trends ongoing and as documented. Follow plan of cares, reinforce teaching and risk assessments. Patient awake alert and cooperative thru shift. Medication review with butcherette and follow up via Emar. (never started
on prescedex) Will update plan of pt/ot and dietary intake. Follow vital trends and follow up with hospitalist. Supportive cares, emotional support and teaching on going. Hourly rounds and frequent patient safety checks. Call doherty demo and in use as
needed.
--- NOTE | 2025-05-24 09:40 | W.PN.INTV ---
Today's Communication / Plan
Recommendations
- Continue to monitor off Precedex
- Regional Maintenance Manager service will sign off once patient is transferred out of ICU
Assessment
-
Patient is a 40-year-old gentleman with known history of alcohol use disorder presented to the hospital on 05/22 with 1 day history of abdominal pain, nausea and vomiting. No prior known history of gallbladder disease or pancreatitis. Reported
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 Patient has had prior episodes of alcohol withdrawal. In the emergency room he was noted to be tachycardiac and there was concern of alcohol withdrawal and was admitted to the
hospitalist service. MSAS score has since been monitored and patient also given phenobarbital. Patient however has continued to get increasingly agitated and on 05/23, he was transferred to ICU for initiation of Precedex infusion due to continued
increasing agitation. Regional Maintenance Manager consultation was requested for further input.
#1. Acute toxic metabolic encephalopathy with severe alcohol withdrawal
- Continue MSAS, Phenobarbital per protocol
- Patient has not required Precedex infusion. This morning appears to be more alert, interactive, answering questions appropriately. Still mildly tachycardic but no tremors noted.
- Continue thiamine replacement
- Protecting airway well, stable for transfer out of ICU.
#2. Abnormal LFTs with abdominal pain
- Alcoholic hepatitis in differential diagnosis as etiology of patient's abdominal discomfort
- Ultrasound without evidence of cholecystitis. No significant ascites noted. Lipase normal, CT abdomen pelvis not suggestive of any pancreatitis.
- Continue empiric IV PPI for ?Gastritis/esophagitis
- History of severe hepatic steatosis as well as alcoholism, AST and ALT serially improving, however bilirubin rising
- Continue to monitor liver function test including bilirubin
- Discriminant function: 13.8, no indication for steroid therapy
#3. Hyponatremia
- Suspect in the setting of alcoholism, check urine sodium and urine osmolality
- NS infusing
- Labs stable
#4. Low K, Mg and P
- Replacing electrolytes
- Monitor labs
#5. Polysubstance abuse
- UDS positive for opiates, barbiturates, tricyclic's, benzodiazepines
- Precedex infusion, monitor for s/s of withdrawl
- QTc interval normal
#6. Thrombocytopenia
- Suspect related to alcoholism and severe fatty liver
- Continue to monitor for now
Other medical diagnoses:
- S/p right nephrectomy with history of Wilms tumor
- Severe diffuse hepatic steatosis
- Left leg lymphedema. known h/o surgery x2 and lymph node dissection. At baseline
- Right hand pain. X ray unremarkable. Check uric acid level in AM.
DVT prophylaxis. Subcu Lovenox
Critical Care time 38 mins -- The patient is admitted for acute critical illness for the treatment of vital organ failure and/or prevention of further life-threatening conditions. Total care includes time spent in review of history, physical exam,
medications, hemodynamic/ventilator parameters, laboratory data, imaging and discussion with house staff, pharmacy, respiratory therapy, hand patcher, and nursing.
Data:
RUQ US 05/2025: 1. VERY SEVERE DIFFUSE HEPATIC STEATOSIS.
2. Distended gallbladder.
3. No sonographic evidence for biliary obstruction.
4. Previous right nephrectomy.
5. No sonographic evidence for ascites.
CT A/P 05/2025: Severe hepatic steatosis.
Prior right nephrectomy.
CXR 05/2025: 1. No radiographic evidence for pneumonia.
2. Moderate elevation of the right hemidiaphragm.
EKG 05/2025: Sinus tachy, QTc 469
ECHO 01/2022: Normal left ventricular size, wall thickness and systolic function. No regional
wall motion abnormalities are seen. LV ejection fraction is 60% by Pacheco's
biplane method of discs. Normal diastolic function.
Mildly thickened mitral valve leaflets. Mitral valve opens normally. Mitral
annular calcification. Mild mitral regurgitation.
Since echocardiogram April 2013, there is no significant change.
Subjective Dataa
Subjective Data
Date of Service:
Date of Service: May 24, 2025
Subjective:
Patient comfortably lying in bed in no acute distress.
Review of Systems
Genitourinary: Other (All 14 systems reviewed and negative except as stated above in the history of present illness.)
Objective Data
Data Reviewed
Vital Signs / I&O / Oxygen:
Vital Signs
Temp Pulse Resp BP Pulse Ox
98.9 F 112 20 145/101 97
05/24/25 08:03 05/24/25 08:03 05/24/25 08:03 05/24/25 08:03 05/24/25 08:05
Intake and Output
05/23/25 05/24/25 05/25/25
06:59 06:59 06:59
Intake Total 3140 / 3140 1600 / 1760 540 / 540
Output Total 2000 / 2800 800 / 800
Balance 3140 / 3140 -400 / -1040 -260 / -260
SaO2 97
Nasal Cannula flow liters per 3
minute
Physical Exam
General: Comfortable
HEENT: Normocephalic
Cardiovascular: S1-S2 (Sinus tach)
Respiratory: Clear
GI: Distended and Non Tender
Neurology: Awake and Alert
Skin: Warm
Labs/Micro/Reports
Lab Data
05/24/25 04:26
05/24/25 04:26
Microbiology
05/22/25 15:01 Nasal Swab Influenza Types A & B (ISABEL) - Final
Negative for Influenza A & B, NAAT
Negative results must be combined with clinical observations
and patient history.
Nucleic Acid Amplification test (NAAT)performed on the
[employer] platform.
[2025-05-24] MEDS: MAGNESIUM SULFATE 102 GRAMS IV (09:41)
[2025-05-24] MEDS: KCL ELIXIR 40 MEQ PO (09:41)
[2025-05-24] MEDS: ATIVAN 1 MG PO (10:54)
[2025-05-24] MEDS: INDERAL 20 MG PO (11:02)
--- NOTE | 2025-05-24 12:41 | PTCARENOTE ---
No changes in assessment. Update with hospitalist teams. Updated plan of telemetry cares. Ambulate one person assist and supervision. Tolerated well, oob to chair at present. Continue to follow changes and medications via Emar.
--- NOTE | 2025-05-24 13:44 | W.PN.HOSP.TC ---
Today's Communication/Plan
-
Monitor vital signs see plan
Continue with MSAS
Transfer out of ICU
Continue with Ativan and phenobarbital taper
Monitor LFTs
Monitor sodium
Clonidine
Assessment / Plan
Assessment / Plan
40yoM PMH R Wilms tumor s/p nephrectomy lung RT with RT fibrosis 1992 and alcohol dependence presenting with alcohol withdrawal and alcohol hepatitis.
AFVSS. Pt is becoming tachycardic with hypertension with agitation scoring MSAS highest 6. Pt complains most of RUQ pain, negative [place] sign. Distended abdomen without fluid wave. Pt also has sore throat and cough, known sick contacts at home
with same symptoms. AST 131 ALT 85 Bilirubin 1.5. Lipase 109. CT abd no signs of pancreatitis, steatosis. Abd US positive for steatosis no findings of ascites. R sided pain localizes to flank w RUQ tenderness most likely referred hepatic pain given
absence of R kidney, eliminating renal etiology for source of pain.
Pt reports he is done drinking. He declined rehab since he has been many times without benefit but reports this time he plans on stopping and changing his lifestyle. Discussed with his sister who reports this has happened about 20 times.
#acute alcohol withdrawal
- MSAS protocol
- cw phenobarbital taper
- PRN ativan
DC further IVF
Did had intermittent delirium. Now slowly improving. Was transferred to ICU 05/23 for Precedex, symptoms started to improve. Was not started on Precedex. Continue with as needed Ativan along with phenobarbital taper. Transfer out of ICU.
#elevated LFTS likely secondary to possible alcohol hepatitis
- Abd US and CT demonstrate steatosis. No extra intra hepatic biliary dilation
- elevated LFTs, trend
Pain control
- Hold tylenol
If symptoms do not improve then consider HIDA
Right hand pain
X-ray without any acute abnormality
Monitor
Hypokalemia
Replete
Hypophosphatemia
Hyponatremia
Suspect in setting of alcoholism
Improved after fluids
Monitor
Hypomagnesemia
Replete
Thrombocytopenia likely secondary to alcohol use
Monitor
Currently hypertensive
Not on any home meds other than as needed propranolol
Make propranolol standing for now
Trial of clonidine has been helpful with both withdrawal and hypertension
Monitor with withrawal
#URI
#Hx lung RT
- cough and sore throat. tx conservatively
- mucinex
- PRN duonebs
#hx Wilms tumor with right nephrectomy
DVT prophylaxis
lovenox
Full code
General: Well Developed, Well Nourished and No Apparent Distress
HEENT: NormoCephalic, Moist mucous membranes and Atraumatic
Respiratory: Clear
Cardiac: S1/S2 and Regular Rhythm; +tachycardia
GI: Soft, Non Tender, Non Distended and Normal Bowel Sounds
Musculoskeletal: No Edema
Neuro: Nonfocal/grossly intact,+ tremor
I spent a total of 51 minutes with the patient or on the floor. More than 50% of this time involved counseling and coordination of care.
Anticipated Discharge: > 48 hours
Subjective/Interval History
-
Date of Service: May 24, 2025
Little bit more alert
Objective Data
-
Labs:
Laboratory Results
05/24/25
04:26
WBC 7.1
Hgb 13.2
Hct 37.5 L
Plt Count 98 L
Sodium 130 L
Potassium 3.5
Chloride 102
Carbon Dioxide 20 L
BUN 7 L
Creatinine 0.6 L
Glucose 95
Calcium 7.7 L
Total Bilirubin 1.7 H
AST 82 H
ALT 59 H
Alkaline Phosphatase 92
Vital Signs:
Vital Signs
Temp Pulse Resp BP Pulse Ox
99 F 107 20 171/94 97
05/24/25 12:38 05/24/25 12:38 05/24/25 12:38 05/24/25 12:38 05/24/25 12:39
I&O
05/23/25 05/24/25 05/25/25
06:59 06:59 06:59
Intake Total 3140 / 3140 1600 / 1760 1485 / 1485
Output Total 2000 / 2800 2300 / 2300
Balance 3140 / 3140 -400 / -1040 -815 / -815
[2025-05-24] MEDS: CATAPRES 0.1 MG PO (14:07)
[2025-05-24] MEDS: LOVENOX 40 MG SC (16:13)
[2025-05-24] MEDS: CATAPRES PO (20:35)
[2025-05-24] MEDS: REMOVE LIDOCAINE PATCH 1 PATCH REMOVE (20:36)
[2025-05-24] MEDS: SINEQUAN 50 MG PO (22:38)
[2025-05-25] VITALS (7 sets, daily range): BP systolic 124–167; BP diastolic 77–108; PULSE 95; O2SAT 98
[2025-05-25] MEDS: ROXICODONE 5 MG PO (00:28)
[2025-05-25] MEDS: THIAMINE INJECTION 200 MG IV (00:29)
[2025-05-25] MEDS: ATIVAN 1 MG PO ×3 (00:57→05:41)
--- NOTE | 2025-05-25 01:12 | PTCARENOTE ---
Pt was restless (MSAS assessment retaken during incident, inc to 6, medication given per MAR). Pt explained he had two medications at his disposal to help with pain/bp. Nursing explained to pt he is not to have medication on him and all home
medication is to be given to pharmacy. Pt said 'oh, I think they were actually given to pharmacy.' RN asked to open bag if willing and show RN bag with medication. Pt agreed and opened bag himself, showing bag. Inhaler and mirtazapine bottle found.
Nursing educated pt on giving medication to pharmacy again. Pt agreed. Charge nurse and POULTRY RAISER notified. Rec to call security for witness with items researched. 2nd RN, Sherry Chong aided in checking bag again along with security as witness during second
search. No further items found. Pt education provided. Medication provided in initial conversation given to pharmacy.
[2025-05-25] MEDS: CATAPRES 0.1 MG PO ×3 (03:20→20:00)
--- NOTE | 2025-05-25 07:02 | W.PN.HOSP.TC ---
Today's Communication/Plan
-
HIDA tomorrow
Monitor wrist pain
Continue withdrawal protocol
Assessment / Plan
Assessment / Plan
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
AFVSS. Pt is becoming tachycardic with hypertension with agitation scoring MSAS highest 6. Pt complains most of RUQ pain, negative [place] sign. Distended abdomen without fluid wave. Pt also has sore throat and cough, known sick contacts at home
with same symptoms. AST 131 ALT 85 Bilirubin 1.5. Lipase 109. CT abd no signs of pancreatitis, steatosis. Abd US positive for steatosis no findings of ascites. R sided pain localizes to flank w RUQ tenderness most likely referred hepatic pain given
absence of R kidney, eliminating renal etiology for source of pain.
Pt reports he is done drinking. He declined rehab since he has been many times without benefit but reports this time he plans on stopping and changing his lifestyle. Discussed with his sister who reports this has happened about 20 times.
Today, afebrile, tahcycardic and hypertensive with pain. Pt reports feeling unwell with continued RUQ/back pain limiting his sleep and new wrist pain in addition to withdrawal myalgias. Gout flare vs positional injury of wrist. MSAS overnight 6, now
down to 3. Plan to add tylenol now LFTs WNL AST 59 ALT 49 and diclofenac gel for wrist. ECG sinus tach. Abd US and CT negative for stone; plan for HIDA tomorrow. NPO at midnight, pain medications stopped 4am.
#acute alcohol withdrawal
- MSAS protocol
- cw phenobarbital taper
- PRN ativan
- Delirium voer weekend. Now slowly improving. Was transferred to ICU 05/23 for Precedex, symptoms started to improve. Was not started on Precedex. Continue with as needed Ativan along with phenobarbital taper. Transfer out of ICU.
- Continue taper
#elevated LFTS; improved
- Abd US and CT demonstrate steatosis. No extra intra hepatic biliary dilation
- elevated LFTs, trend
- Pain control
- Tylenol
- Continued pain: HIDA tomorrow
#Right hand pain
- X-ray without any acute abnormality
- Monitor
- Tx conservatively with diclofenac cream as needed
#Hypokalemia
- Repleted
#Hypophosphatemia
- monitor
#Hyponatremia
- Suspect in setting of alcoholism
- Improved after fluids
- Monitor
- Urine Osm appropriately low; unlikely SIADH
#Hypomagnesemia
- Repleted
#Thrombocytopenia likely secondary to alcohol use
- Improved
#Currently hypertensive
- Not on any home meds other than as needed propranolol. Make propranolol standing for now
- Trial of clonidine has been helpful with both withdrawal and hypertension
- Monitor with withdrawal
#URI
#Hx lung RT
- cough and sore throat. tx conservatively
- mucinex
- PRN duonebs
#hx Wilms tumor with right nephrectomy
DVT prophylaxis
lovenox
Full code
Anticipated Discharge: 24 - 48 hours
Subjective/Interval History
-
Date of Service: May 25, 2025
Pt reports feeling unwell today with whole body aches and continuation of RUQ/back pain exacerbated with cough, described as ice pick into his abdomen. Pt does not feel the lidoacine patches help. He feels like he cannot find a comfortable position
to sleep due to the severity of the pain.
He also reports new R wrist pain that started over the weekend. He describes gout episodes often when he is in detox facilities, however, they are often in his toe rather than wrist.
Pt reports having delusions over the weekend that he recollects but understands were not clear thoughts and no longer feels confused in that way.
Normal BM. No recent nausea or vomiting.
Objective Data
-
Labs:
Laboratory Results
05/25/25
06:32
WBC Pending
Hgb Pending
Hct Pending
Plt Count Pending
Sodium Pending
Potassium Pending
Chloride Pending
Carbon Dioxide Pending
BUN Pending
Creatinine Pending
Glucose Pending
Calcium Pending
Total Bilirubin Pending
AST Pending
ALT Pending
Alkaline Phosphatase Pending
Vital Signs:
Vital Signs
Temp Pulse Resp BP Pulse Ox
98.6 F 104 16 167/108 98
05/25/25 03:19 05/25/25 03:20 05/25/25 03:03 05/25/25 03:20 05/25/25 03:19
I&O
05/24/25 05/25/25 05/26/25
06:59 06:59 06:59
Intake Total 1600 / 1760 1485 / 1485
Output Total 2000 / 2800 2800 / 2800
Balance -400 / -1040 -1315 / -1315
Review of Systems
-
History Source: Patient
All other systems: Reviewed and negative
EENT: Reports Sore Throat
Respiratory: Reports Cough
Abdomen/GI: Reports Abdominal Pain
Physical Exam
-
General: Other (appears uncomfortable)
HEENT: Normocephalic, Atraumatic and Moist Mucous Membranes
Respiratory: Wheezes and Non Labored Respirations
Cardiac: Regular Rhythm and S1/S2
GI: Soft, Tender (mildly RUQ mostly to back) and Distended (no fluid wave)
Musculoskeletal: No Edema (L at baseline)
Skin: Warm; Negative Dry (diaphoretic, face flushed)
Neuro: AO x 3 and Nonfocal/Grossly Intact
[2025-05-25 07:58] LABS: Hematocrit 38.2 % (39.0-52.0); Hemoglobin 13.0 g/dL (13.0-18.0); Mean Corp Hgb Conc. 34.0 g/dL (33.0-37.0); Mean Corpuscular Volume 94.8 fL (80.0-94.0); Nucleated Red Blood Cells % 0 % (-); Platelet Count 135 10^3/uL (130-400); Red Cell Dist. Width 12.9 % (11.5-14.5)
[2025-05-25] MEDS: NSS 1000 IV (08:17)
[2025-05-25] MEDS: PROTONIX IV 40 MG IV (08:18)
[2025-05-25] MEDS: NSS (PRESERVATIVE FREE) 10 ML IV (08:18)
[2025-05-25] MEDS: INDERAL 20 MG PO (08:19)
[2025-05-25] MEDS: VITAMIN B1 100 MG PO ×2 (08:19→20:00)
[2025-05-25] MEDS: MUCINEX 600 MG PO ×2 (08:19→20:00)
[2025-05-25] MEDS: LUMINAL 64.8 MG PO ×3 (08:19→21:58)
[2025-05-25] MEDS: FOLVITE 1 MG PO (08:20)
[2025-05-25] MEDS: LIDOCAINE 4% PATCH 1 PATCH TOPICAL (08:20)
[2025-05-25 08:45] LABS: ALT (SGPT) 49 U/L (0-50); AST (SGOT) 59 U/L (17-59); Albumin 3.5 g/dl (3.5-5.0); Alkaline Phosphatase 112 U/L (38-126); Blood Urea Nitrogen 6 mg/dl (9-20); Calcium 8.1 mg/dl (8.4-10.2); Carbon Dioxide 17 mmol/L (22-30); Chloride 102 mmol/L (98-107); Estimated Creatinine Clearance > 125 ml/min; Glucose 94 mg/dl (70-99); Magnesium 1.9 mg/dl (1.6-2.3); Potassium 3.7 mmol/L (3.5-5.1); Sodium 130 mmol/L (135-145); Total Protein 6.3 g/dl (6.3-8.2); eGFR > 60.00
[2025-05-25] MEDS: DICLOFENAC 1% TOPICAL GEL 2 GRAM TOPICAL ×2 (13:05→20:01)
[2025-05-25] MEDS: DILAUDID 0.5 MG IV ×2 (14:42→20:18)
[2025-05-25] MEDS: DICLOFENAC 1% TOPICAL GEL 100 GRAM TOPICAL (16:48)
[2025-05-25] MEDS: LOVENOX 40 MG SC (16:49)
--- NOTE | 2025-05-25 17:53 | CM ---
CM met with patient at bedside. Patient plans to stay with his parents after d/c. He is interested in speaking with someone about resources for outpatient rehab,.
Plan: home with parents after d/c.
[2025-05-25] MEDS: REMOVE LIDOCAINE PATCH 1 PATCH REMOVE (20:04)
[2025-05-25] MEDS: SINEQUAN 50 MG PO (21:56)
[2025-05-26] MEDS: ATIVAN 1 MG PO ×2 (02:14→04:16)
[2025-05-26 03:13] VITALS: BP 168/106
[2025-05-26 07:30] VITALS: BP 152/86
--- NOTE | 2025-05-26 07:50 | W.PN.HOSP.TC ---
Today's Communication/Plan
-
HIDA today
Assessment / Plan
Assessment / Plan
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
AFVSS. Pt is becoming tachycardic with hypertension with agitation scoring MSAS highest 6. Pt complains most of RUQ pain, negative [place] sign. Distended abdomen without fluid wave. Pt also has sore throat and cough, known sick contacts at home
with same symptoms. AST 131 ALT 85 Bilirubin 1.5. Lipase 109. CT abd no signs of pancreatitis, steatosis. Abd US positive for steatosis no findings of ascites. R sided pain localizes to flank w RUQ tenderness most likely referred hepatic pain given
absence of R kidney, eliminating renal etiology for source of pain.
Pt reports he is done drinking. He declined rehab since he has been many times without benefit but reports this time he plans on stopping and changing his lifestyle. Discussed with his sister who reports this has happened about 20 times.
Afebrile, tahcycardic and hypertensive with pain. Pt reports feeling unwell with continued RUQ/back pain limiting his sleep and new wrist pain in addition to withdrawal myalgias. Gout flare vs positional injury of wrist. MSAS overnight 6, now down
to 3. Plan to add tylenol now LFTs WNL AST 59 ALT 49 and diclofenac gel for wrist. ECG sinus tach. Abd US and CT negative for stone; plan for HIDA tomorrow. NPO at midnight, pain medications stopped 4am.
Today, Afebrile. Continued tachycardia, prior to morning propranolol and clonidine. MSAS 7 at 4am, down to 3 this morning. Pt reports hallucinations yesterday into the night, otherwise withdrawal symptoms have subsided. Continued RUQ pain; HIDA
today. Wrist pain shoots into fingers, likely nerve impingement due to abnormal sleeping from RUQ pain. Encouraged pt to stretch and move his wrist as needed.
#acute alcohol withdrawal
- MSAS protocol
- cw phenobarbital taper
- PRN ativan
- Delirium voer weekend. Now slowly improving. Was transferred to ICU 05/23 for Precedex, symptoms started to improve. Was not started on Precedex. Continue with as needed Ativan along with phenobarbital taper. Transfer out of ICU.
- Continue taper
#elevated LFTS; improved
- Abd US and CT demonstrate steatosis. No extra intra hepatic biliary dilation
- elevated LFTs, trend
- Pain control
- Tylenol
- Continued pain: HIDA today
#Right hand pain
- X-ray without any acute abnormality
- Monitor
- Tx conservatively with diclofenac cream as needed. Encouraged pt to stretch and move wrist.
#Hypokalemia
- Repleted
#Hypophosphatemia
- monitor
#Hyponatremia
- Suspect in setting of alcoholism
- Improved after fluids
- Monitor
- Urine Osm appropriately low; unlikely SIADH
#Hypomagnesemia
- Repleted
#Thrombocytopenia likely secondary to alcohol use
- Improved
#Currently hypertensive
- Not on any home meds other than as needed propranolol. Make propranolol standing for now
- Trial of clonidine has been helpful with both withdrawal and hypertension
- Monitor with withdrawal
#URI
#Hx lung RT
- cough and sore throat. tx conservatively
- mucinex
- PRN duonebs
#hx Wilms tumor with right nephrectomy
DVT prophylaxis
lovenox
Full code
Anticipated Discharge: Within 24 hours
Subjective/Interval History
-
Date of Service: May 26, 2025
Pt reports improved withdrawal symptoms with resolved tremors and full body aches but continued RUQ pain. However, he describes visual hallucinations yesterday throughout the night. He stated he is mildly distressed by it but assumes it is from lack
of sleep since his R sided pain prevents him from sleeping for the last few nights. States ativan helps him relax and sleep a bit so unsure if the hallucinations vanish completely.
He describes the wrist pain as occasionally shooting into his fingers possible 3 or 4. Pt expressed concern for RUQ pain as his other symptoms have improved.
Objective Data
-
Labs:
Laboratory Results
05/26/25
06:59
WBC Pending
Hgb Pending
Hct Pending
Plt Count Pending
Sodium Pending
Potassium Pending
Chloride Pending
Carbon Dioxide Pending
BUN Pending
Creatinine Pending
Glucose Pending
Calcium Pending
Total Bilirubin Pending
AST Pending
ALT Pending
Alkaline Phosphatase Pending
Vital Signs:
Vital Signs
Temp Pulse Resp BP Pulse Ox
99.3 F 104 18 168/106 98
05/26/25 03:13 05/26/25 03:13 05/26/25 03:13 05/26/25 03:13 05/26/25 03:13
I&O
05/25/25 05/26/25 05/27/25
06:59 06:59 06:59
Intake Total 1485 / 1485 1240 / 1240
Output Total 2800 / 2800 500 / 500
Balance -1315 / -1315 740 / 740
Physical Exam
-
General: Well Nourished, No Apparent Distress and Other (uncomfortable)
HEENT: Normocephalic, Atraumatic and Moist Mucous Membranes
Respiratory: Clear to Auscultation and Non Labored Respirations
Cardiac: Regular Rhythm and S1/S2
GI: Soft, Tender (RUQ, increased from yesterday but off all pain medications) and Distended
Musculoskeletal: No Edema
Skin: Warm and Dry
Neuro: AO x 3 and Nonfocal/Grossly Intact
Psych: Calm
[2025-05-26 08:09] LABS: Hematocrit 41.4 % (39.0-52.0); Hemoglobin 14.4 g/dL (13.0-18.0); Mean Corp Hgb Conc. 34.8 g/dL (33.0-37.0); Mean Corpuscular Volume 95.2 fL (80.0-94.0); Platelet Count 147 10^3/uL (130-400); Red Cell Dist. Width 12.9 % (11.5-14.5)
[2025-05-26] MEDS: MUCINEX 600 MG PO (08:11)
[2025-05-26] MEDS: CATAPRES 0.1 MG PO (08:11)
[2025-05-26] MEDS: VITAMIN B1 100 MG PO (08:11)
[2025-05-26] MEDS: DICLOFENAC 1% TOPICAL GEL 100 GRAM TOPICAL ×2 (08:11→12:49)
[2025-05-26] MEDS: LUMINAL 32.4 MG PO (08:12)
[2025-05-26] MEDS: FOLVITE 1 MG PO (08:12)
[2025-05-26] MEDS: INDERAL 20 MG PO (08:12)
[2025-05-26] MEDS: LIDOCAINE 4% PATCH 1 PATCH TOPICAL (08:12)
[2025-05-26] MEDS: NSS (PRESERVATIVE FREE) 10 ML IV (08:13)
[2025-05-26] MEDS: PROTONIX IV 40 MG IV (08:13)
[2025-05-26 10:11] LABS: ALT (SGPT) 48 U/L (0-50); AST (SGOT) 58 U/L (17-59); Albumin 3.6 g/dl (3.5-5.0); Alkaline Phosphatase 108 U/L (38-126); Blood Urea Nitrogen 6 mg/dl (9-20); Calcium 8.7 mg/dl (8.4-10.2); Carbon Dioxide 18 mmol/L (22-30); Chloride 101 mmol/L (98-107); Estimated Creatinine Clearance > 125 ml/min; Glucose 104 mg/dl (70-99); Potassium 4.2 mmol/L (3.5-5.1); Sodium 129 mmol/L (135-145); Total Protein 6.7 g/dl (6.3-8.2); eGFR > 60.00
--- NOTE | 2025-05-26 11:30 | CM ---
Addendum entered by Neena Camarillo 05/26/25 14:57:
Patient was discharged home today. [facility] rep met with patient and provided outpatient resources prior to d/c.
Addendum entered by Neena Camarillo 05/26/25 12:37:
[facility] rep came to see patient today, but he was off the floor for a test. He will be back to see patient on 05/27/25.
Original Note:
Referral made to [facility] for outpatient rehab resources.
[2025-05-26] MEDS: DILAUDID 0.5 MG IV (11:53)
--- NOTE | 2025-05-26 13:16 | W.DCSUMMARY ---
Documented by User: Lashell Wall MD, Resident 05/26/25 14:54
Discharge Summary
Discharge Data
Date of Admission: 05/23/25
Date of Discharge: 05/26/25
-
Pending Results: No
Hospital Course
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
Afebrile. Pt was tachycardic with hypertensive with agitation scoring MSAS highest 6. Pt complained of RUQ pain, negative [place] sign. Distended abdomen without fluid wave. Pt also reported sore throat and cough, known sick contacts at home with
same symptoms. Started mucinex and PRN duonebs. AST 131 ALT 85 concern for alcohol induced hepatitis. Bilirubin 1.5. Lipase 109. CT abd no signs of pancreatitis, findings of steatosis. Abd US positive for steatosis no findings of ascites. R sided
pain localizes to flank w RUQ tenderness most likely referred hepatic pain given absence of R kidney, eliminating renal etiology for source of pain. Hypokalemia, hypomagnesium, hypophosphatemia repleted. Hyponatremia in setting of alcoholism.
Started on alcohol protocol MSAS, phenobarbital taper, PRN ativan, thiamine and folate repletion. Transient thrombocytopenia self resolved. Pt reports he is done drinking. He declined rehab since he has been many times without benefit but reports
this time he plans on stopping and changing his lifestyle. Discussed plan with his sister.
Pt was transferred to ICU over the weekend for concern DT for initiation of precedex. Precedex was not started due to resolution of symptoms. Phenobarbital with as needed ativan continued. Started standing propranolol and clonidine for hypertension.
On Sunday, pt continued to be tachycardic and hypertensive with pain. Pt reports feeling unwell with continued RUQ/back pain limiting his sleep and new wrist pain in addition to withdrawal myalgias. Xray of wrist negative for acute findings. Gout
flare vs positional injury of R wrist. MSAS overnight 6, now down to 3. Plan to add tylenol now LFTs WNL AST 59 ALT 49 and diclofenac gel for wrist. ECG sinus tach. Since initial abd US and CT negative for stone; plan for HIDA tomorrow. NPO at
midnight, pain medications stopped 4am.
On day of discharge, Afebrile. Continued tachycardia, prior to morning propranolol and clonidine. MSAS 7 at 4am, down to 3 this morning. Pt reports withdrawal symptoms have subsided. Wrist pain shoots into fingers, likely nerve impingement due to
abnormal sleeping from RUQ pain. Encouraged pt to stretch and move his wrist as needed. HIDA negative. Tylenol and as needed oxydocone for RUQ pain as it heals. LFTs WNL.
Instructed to follow up with PCP regarding RUQ pain and R wrist pain if they do not resolve in 1 week. Additionally, follow up CMP for improving hyponatremia.
Discharge Plan
-
Patient Disposition: Home (Routine Discharge)
Discharge Diagnosis/Procedures: Alcohol withdrawal
Right sided abdomen pain
Hyponatremia
Condition: Fair
Diet: Restrict fluids to 48 oz
Activity: As tolerated
Driving Restrictions: As prior to admission
Bathing Restrictions: None
Blood Work: CMP, CBC with differential, magnesium level in 5 to 7 days with family doctor
Instructions: Alcohol withdrawal
Referrals:
Ludin Lomeli DO [Family Provider, Family Practice] - in less than 1 week
Additional Discharge Medication Instructions: Continue pantoprazole 40 mg daily
Continue thiamine 100 mg twice daily and folate 1 mg daily
Follow u with your PCP in 1 week.
Prescriptions:
New
folic acid 1 mg Tablet
1 mg PO DAILY 30 Days Qty: 30 0RF
thiamine mononitrate (vit B1) 100 mg Tablet
100 mg PO BID 30 Days Qty: 60 0RF
pantoprazole 40 mg tablet,delayed release (DR/EC)
40 mg PO DAILY 30 Days Qty: 30 0RF
oxycodone 5 mg tablet
5 mg PO Q6H PRN (Reason: Pain) 5 Days Qty: 20 0RF
Continued
albuterol sulfate 2.5 mg /3 mL (0.083 %) solution for nebulization
2.5 mg inhalation Q6H PRN (Reason: shortness of breath or wheezing) Qty: 90 0RF
doxepin 50 mg Capsule
50 mg PO HS
naltrexone 50 mg Tablet
50 mg PO DAILY
propranolol 20 mg Tablet
20 mg PO BID PRN (Reason: anxiety)
Discontinued
aspirin 325 MG tablet
325 mg PO DAILY 0RF
Rx Instructions:
TAKE WITH FOOD
Discharge Orders:
Discharge Patient (As Directed); Ordered 05/26/25
Ordered By: Lashell Wall
Discharge Date and Time
Discharge Date/Time: 05/26/25 14:52
Print Language: SLOVENIAN

Documented by User: Wilfrido Kothari DO 05/26/25 15:10
Discharge Summary
Discharge Data
Date of Admission: 05/23/25
Date of Discharge: 05/26/25
Total time spent discharging patient (in min): 35
Discharge Plan
-
Patient Disposition: Home (Routine Discharge)
Discharge Diagnosis/Procedures: Alcohol withdrawal
Right sided abdomen pain
Hyponatremia
Condition: Fair
Diet: Restrict fluids to 48 oz
Activity: As tolerated
Driving Restrictions: As prior to admission
Bathing Restrictions: None
Blood Work: CMP, CBC with differential, magnesium level in 5 to 7 days with family doctor
Instructions: Alcohol withdrawal
Referrals:
Ludin Lomeli DO [Family Provider, Family Practice] - in less than 1 week
Additional Discharge Medication Instructions: Continue pantoprazole 40 mg daily
Continue thiamine 100 mg twice daily and folate 1 mg daily
Follow u with your PCP in 1 week.
Prescriptions:
New
folic acid 1 mg Tablet
1 mg PO DAILY 30 Days Qty: 30 0RF
thiamine mononitrate (vit B1) 100 mg Tablet
100 mg PO BID 30 Days Qty: 60 0RF
pantoprazole 40 mg tablet,delayed release (DR/EC)
40 mg PO DAILY 30 Days Qty: 30 0RF
oxycodone 5 mg tablet
5 mg PO Q6H PRN (Reason: Pain) 5 Days Qty: 20 0RF
Continued
albuterol sulfate 2.5 mg /3 mL (0.083 %) solution for nebulization
2.5 mg inhalation Q6H PRN (Reason: shortness of breath or wheezing) Qty: 90 0RF
doxepin 50 mg Capsule
50 mg PO HS
naltrexone 50 mg Tablet
50 mg PO DAILY
propranolol 20 mg Tablet
20 mg PO BID PRN (Reason: anxiety)
Discontinued
aspirin 325 MG tablet
325 mg PO DAILY 0RF
Rx Instructions:
TAKE WITH FOOD
Discharge Orders:
Discharge Patient (As Directed); Ordered 05/26/25
Ordered By: Lashell Wall
Discharge Date and Time
Discharge Date/Time: 05/26/25 14:52
Print Language: SLOVENIAN
[2025-05-26 14:36] VITALS: BP 141/83
== END 2025-05-26 14:52 | disposition home or self-care (01) | DRG 896 ==
LOC: 4 WEST ACU 15:57
PROVIDERS: Internal Medicine; ADMITTING PHYSICIAN Internal Medicine; ATTENDING PHYSICIAN Internal Medicine; CONSULT PHYSICIAN Internal Medicine; EMERGENCY PHYSICIAN Emergency Medicine; FAMILY PHYSICIAN Family Medicine
DX: F10.239 Alcohol dependence with withdrawal, unspecified (principal); G92.8 Other toxic encephalopathy; E87.1 Hypo-osmolality and hyponatremia; F10.251 Alcohol dependence with alcohol-induced psychotic disorder with hallucinations; J45.909 Unspecified asthma, uncomplicated; E83.42 Hypomagnesemia; K76.0 Fatty (change of) liver, not elsewhere classified; E87.6 Hypokalemia; I10 Essential (primary) hypertension; G47.00 Insomnia, unspecified; K70.10 Alcoholic hepatitis without ascites; Y90.8 Blood alcohol level of 240 mg/100 ml or more; F41.9 Anxiety disorder, unspecified; F10.221 Alcohol dependence with intoxication delirium; F19.10 Other psychoactive substance abuse, uncomplicated; D69.59 Other secondary thrombocytopenia; M79.641 Pain in right hand; J06.9 Acute upper respiratory infection, unspecified; E83.39 Other disorders of phosphorus metabolism; I89.0 Lymphedema, not elsewhere classified; F32.A Depression, unspecified; F98.8 Other specified behavioral and emotional disorders with onset usually occurring in childhood and adolescence; Z90.5 Acquired absence of kidney; Z85.528 Personal history of other malignant neoplasm of kidney; Z88.8 Allergy status to other drugs, medicaments and biological substances; Z11.52 Encounter for screening for COVID-19
CPT/HCPCS: 71045; 73130; 74177; 76700; 78226; 80053; 80306; 80307; 81003; 81015; 82077; 82248; 82962; 83690; 83735; 83935; 84100; 84300; 84550; 85025; 85027; 85610; 85730; 87502; 87811; 93005; 96361; 96374; 96375; 96376; 97163; 99285; A9537; Q9967